=== PATIENT | female | born 1985 | race Asian ===

== ENCOUNTER 2018-08-26 14:59 | Outpatient (CLI) | payer BC ==
[2018-08-26] MEDS ORDERED: ASCO-90 PO (15:33)
[2018-08-26] MEDS ORDERED: CYAN50008 PO (15:33)
== END 2018-08-26 23:59 | disposition home or self-care (01) ==
LOC: STAR 14:59
PROVIDERS: ATTEND Surgery
DX: Z02.9 Encounter for administrative examinations, unspecified (principal)

== ENCOUNTER 2018-09-01 06:02 | Day surgery (SDC) | payer BC ==
[~2018-09-01] VITALS: Ht 165.1 cm; Wt 114.9 kg
[~2018-09-01 06:02] MED LIST: ASCO-90 PO; CYAN50008 PO
[2018-09-01] MEDS ORDERED: LACTATED RINGERS 1,000 ML IV SCH (06:55)
[2018-09-01] MEDS ORDERED: BUPIVACAINE/PF-EPI 0.5% 1:200K ONE (06:58)
[2018-09-01 07:26] LABS: HCG UR SG 1.029 (1.003-1.030)
[2018-09-01] MEDS ORDERED: SUGAMMADEX 200 MG/2 ML IVPush ONE (08:29)
[2018-09-01] MEDS ORDERED: KETOROLAC 30 MG/1 ML ONE (09:21)
[2018-09-01] MEDS ORDERED: ACETAMINOPHEN 650 MG/20.3 ML UDC ONE (09:21)
[2018-09-01] MEDS ORDERED: MEPERIDINE/PF 25MG/ML,1ML ONE (09:22)
[2018-09-01] MEDS: MEPERIDINE/PF 25MG/0.5ML IVPush PRN ×2 (09:28→09:55)
[2018-09-01] MEDS ORDERED: ONDANSETRON 2MG/ML, 2ML IVPush PRN (09:30)
[2018-09-01] MEDS ORDERED: FENTANYL PF 100 MCG/2ML IV PRN (09:30)
[2018-09-01] MEDS ORDERED: MIDAZOLAM 1 MG/ML, 2ML IV PRN (09:30)
[2018-09-01] MEDS ORDERED: KETOROLAC 30 MG/1 ML IVPush ONE (09:30)
[2018-09-01] MEDS ORDERED: ACETAMINOPHEN 650 MG/20.3 ML UDC PO PRN (09:30)
[2018-09-01] MEDS ORDERED: LABETALOL 5MG/ML, 20ML IV PRN (09:30)
[2018-09-01] MEDS ORDERED: HYDROmorphone 1 MG/ML, 1ML IV PRN (09:30)
[2018-09-01] MEDS ORDERED: OXYcodone 5 MG/5 ML ORAL.SOL UDC ONE (10:04)
[2018-09-01] MEDS: OXYcodone 5 MG/5 ML ORAL.SOL UDC PO PRN ×2 (10:05→10:45)
[2018-09-01] MEDS ORDERED: METOCLOPRAMIDE 5 MG/ML, 2ML ONE (10:34)
[2018-09-01] MEDS ORDERED: DEXAMETHASONE 4 MG/ML, 1ML ONE (10:34)
[2018-09-01] MEDS ORDERED: SUCCINYLCHOLINE 20 MG/ML, 10ML ONE (10:34)
[2018-09-01] MEDS ORDERED: PROPOFOL 10 MG/ML, 20ML ONE (10:34)
[2018-09-01] MEDS ORDERED: ROCURONIUM 10MG/ML,5ML ONE (10:34)
[2018-09-01] MEDS ORDERED: ONDANSETRON 2MG/ML, 2ML ONE (10:34)
[2018-09-01] MEDS ORDERED: CEFAZOLIN 1,000 MG ONE (10:34)
== END 2018-09-01 13:00 | disposition home or self-care (01) ==
LOC: OUT 06:02
PROVIDERS: ATTEND Surgery
DX: K80.10 Calculus of gallbladder with chronic cholecystitis without obstruction (principal); Z98.890 Other specified postprocedural states; Z72.89 Other problems related to lifestyle
CPT/HCPCS: 47562; 81025; 88304; J0330; J0690; J1100; J1885; J2175; J2250; J2405; J2704; J2765; J3010; J7120